=== PATIENT | female | born 1930 | race Asian ===

== ENCOUNTER 2018-06-03 18:02 | Emergency (ER) | payer MEDICARE, OTHER ==
[~2018-06-03] VITALS: Ht 167.6 cm; Wt 68.2 kg
[~2018-06-03 18:02] MED LIST: ALEN70TA48 PO; ALLO100T PO; AMLO-511 PO; CALC-472 PO; CLOP75 PO; DOCU100C98 PO; ENAL20 PO; FOLI1TAB15 PO; FURO40I IM; METO25XL PO; OMEP20 PO; SIMV-261 PO; TRAM50TA2 PO; [UNRECOGNIZED DRUG - CODE] PO
[2018-06-03 18:14] LABS: GLUCOSE,POINT OF CARE 131 MG/DL (70-110)
[2018-06-03] MEDS ORDERED: CLOP75 PO (18:16)
[2018-06-03] MEDS ORDERED: SUCR500T PO (18:16)
[2018-06-03] MEDS ORDERED: INSLAN SQ (18:16)
[2018-06-03] MEDS ORDERED: INSU100V SQ ×3 (18:16)
[2018-06-03] MEDS ORDERED: ATOR20TA86 PO (18:16)
[2018-06-03] MEDS ORDERED: HYDR10TA31 PO (18:16)
[2018-06-03] MEDS ORDERED: TORS20 PO (18:16)
[2018-06-03] MEDS ORDERED: LISI-662 PO (18:16)
[2018-06-03] MEDS ORDERED: GABA-529 PO (18:16)
[2018-06-03] MEDS ORDERED: NITROGLYCERIN 2% (1 GM=INCH) PACKET TP ONE (18:30)
[2018-06-03 18:32] LABS: BASOPHILS % (AUTO) 0.7 % (0.0-2.0); EOSINOPHILS % (AUTO) 4.6 % (1.0-6.0); HEMATOCRIT 39.8 % (36-46); HEMOGLOBIN 13.5 g/dL (12.0-16.0); LYMPHOCYTES # (AUTO) 2.9 K/uL (1.0-4.8); LYMPHOCYTES % (AUTO) 45.5 % (22.0-44.0); MEAN CORPUSCULAR HEMOGLOBIN 32.9 pg (26.0-34.0); MEAN CORPUSCULAR HGB CONC 33.9 G/dL (31.0-37.0); MEAN CORPUSCULAR VOLUME 97 fL (80-100); MONOCYTES # (AUTO) 0.6 K/uL (0.1-1.0); MONOCYTES % (AUTO) 10.1 % (2.0-9.0); NEUTROPHILS # (AUTO) 2.5 K/uL (1.8-7.7); NEUTROPHILS % (AUTO) 39.1 % (40.0-70.0); PLATELET COUNT (AUTO) 178 K/uL (150-450); RED CELL DISTRIBUTION WIDTH 15.3 % (11.5-14.5)
[2018-06-03 18:41] LABS: CALCIUM, TOTAL 9.3 mg/dL (8.8-10.5); CREATININE 1.68 mg/dL (0.60-1.30); POTASSIUM 4.6 mmol/L (3.5-5.1)
[2018-06-03 18:49] LABS: ALBUMIN 3.4 g/dL (3.4-5.0); BILIRUBIN,TOTAL 0.4 mg/dL (0.1-1.0); TOTAL PROTEIN, SERUM 8.3 g/dL (6.4-8.2)
[2018-06-03] MEDS ORDERED: CloNIDine HCL 0.2 MG TABLET PO ONE (20:15)
[2018-06-03 20:25] VITALS: BP 171/69
== END 2018-06-03 20:53 | disposition home or self-care (01) ==
LOC: EMS 18:03
DX: K06.8 Other specified disorders of gingiva and edentulous alveolar ridge (principal); I12.9 Hypertensive chronic kidney disease with stage 1 through stage 4 chronic kidney disease, or unspecified chronic kidney disease; E11.22 Type 2 diabetes mellitus with diabetic chronic kidney disease; N18.9 Chronic kidney disease, unspecified; E78.00 Pure hypercholesterolemia, unspecified; Z79.4 Long term (current) use of insulin; Z90.710 Acquired absence of both cervix and uterus; Z79.899 Other long term (current) drug therapy; Z88.5 Allergy status to narcotic agent; Z88.6 Allergy status to analgesic agent; Z86.73 Personal history of transient ischemic attack (TIA), and cerebral infarction without residual deficits

== ENCOUNTER 2018-09-02 00:32 | Emergency (ER) | payer MEDICARE, OTHER ==
[~2018-09-02] VITALS: Ht 152.4 cm; Wt 54.5 kg
[~2018-09-02 00:32] MED LIST changes: -ALEN70TA48 PO; +ATOR20TA86 PO; -CLOP75 PO; +CLOP75TA17 PO; -DOCU100C98 PO; -ENAL20 PO; -FOLI1TAB15 PO; -FURO40I IM; +GABA-529 PO; +HYDR10TA31 PO; +INSLAN SQ; +INSU100V SQ; +LISI-662 PO; -OMEP20 PO; -SIMV-261 PO; +SUCR500T PO; +TORS20 PO; -[UNRECOGNIZED DRUG - CODE] PO
[2018-09-02 00:44] LABS: GLUCOSE,POINT OF CARE 91 MG/DL (70-110)
[2018-09-02 01:14] LABS: BASOPHILS % (AUTO) 0.9 % (0.0-2.0); EOSINOPHILS % (AUTO) 6.1 % (1.0-6.0); HEMATOCRIT 39.4 % (36-46); HEMOGLOBIN 13.1 g/dL (12.0-16.0); LYMPHOCYTES # (AUTO) 3.1 K/uL (1.0-4.8); LYMPHOCYTES % (AUTO) 51.9 % (22.0-44.0); MEAN CORPUSCULAR HEMOGLOBIN 32.5 pg (26.0-34.0); MEAN CORPUSCULAR HGB CONC 33.3 G/dL (31.0-37.0); MEAN CORPUSCULAR VOLUME 98 fL (80-100); MONOCYTES # (AUTO) 0.7 K/uL (0.1-1.0); MONOCYTES % (AUTO) 11.3 % (2.0-9.0); NEUTROPHILS # (AUTO) 1.8 K/uL (1.8-7.7); NEUTROPHILS % (AUTO) 29.8 % (40.0-70.0); PLATELET COUNT (AUTO) 181 K/uL (150-450); RED BLOOD CELL COUNT(AUTO) 4.03 MIL/uL (4.00-5.20); RED CELL DISTRIBUTION WIDTH 14.6 % (11.5-14.5)
[2018-09-02 01:22] LABS: CALCIUM, TOTAL 9.9 mg/dL (8.8-10.5); CREATININE 1.69 mg/dL (0.60-1.30); POTASSIUM 4.3 mmol/L (3.5-5.1)
[2018-09-02 01:23] LABS: INR 0.9 (0.9-1.1); PROTHROMBIN TIME 9.9 SEC (9.4-11.6)
[2018-09-02 01:27] LABS: ALBUMIN 3.4 g/dL (3.4-5.0); BILIRUBIN,TOTAL 0.4 mg/dL (0.1-1.0); TOTAL PROTEIN, SERUM 7.9 g/dL (6.4-8.2)
[2018-09-02 02:55] VITALS: BP 157/67
== END 2018-09-02 03:08 | disposition home or self-care (01) ==
LOC: EMS 00:33
DX: K06.8 Other specified disorders of gingiva and edentulous alveolar ridge (principal); I10 Essential (primary) hypertension; E78.00 Pure hypercholesterolemia, unspecified; E11.9 Type 2 diabetes mellitus without complications; Z88.1 Allergy status to other antibiotic agents; Z88.6 Allergy status to analgesic agent; Z79.4 Long term (current) use of insulin; Z79.899 Other long term (current) drug therapy